=== PATIENT | female | born 1965 | race Caucasian/White ===

== ENCOUNTER 2018-08-14 06:07 | Day surgery (SDC) | payer SELFPAY ==
--- NOTE | 2018-08-12 21:12 | PREOPHP ---
Date of Admission: 08/13/2018 History Of Present Illness: Ms. Bowers is a 53-year-old female, 2, para 2-0-0-2, who has been menopausal for the last year plus but despite that has had some bleeding issues . She was initially treated with a variety of medications including oral contraceptive. She has con tinued to bleed. She is scheduled for hysteroscopy, D and C for evaluation and/or treatment of postm enopausal bleeding. Past Medical History: Includes 2 prior vaginal deliveries without complications. Medications: She is on currently thyroid replacement and an oral contraceptive for bleeding control. Allergies: SHE HAS NO KNOWN ALLERGIES. Social History: She does not smoke. Family History: Significant for father at young age of prostate cancer. Mother with thyroid di sorder. Review of Systems: She reports no recent cough, cold, fever, or chills. No recent nausea or vomiting. She denies any b reast lumps or knots. She denies any bowel or bladder issues. She has a negative ultrasound last ye ar for a leiomyomata or tubal abnormalities. She had endometrial biopsy from the end of last year sh owing no evidence of hyperplasia or precancer. She has an elevated FSH consistent with menopause las t year also. Impression: Postmenopausal bleeding, unresponsive to hormonal management. Plan: The patient will undergo hysteroscopy, dilatation and curettage for evaluation and treatment. LASHONDA Voice ID: [id number]
[2018-08-13 14:39] LABS: Absolute Lymphocytes (CBC) 2.2 K/uL (0.7-4.9); Absolute Monocytes 0.7 K/uL (0.1-1.3); Absolute Neutrophil 6.2 K/uL (1.8-8.0); Basophils % 0.6 % (0-1.3); Hematocrit 39.9 % (36.0-45.0); Lymphocytes % 23.6 % (15.3-44.8); Monocytes % 7.3 % (3.3-12.3)
[~2018-08-14 06:07] MED LIST: Ringers Lactate 1,000 ML IV SCH
[2018-08-14] MEDS ORDERED: Ringers Lactate 1,000 ML IV ONE (06:45)
[2018-08-14] MEDS ORDERED: SILVER NITRATE 1 APPL TOP ONE (07:09)
[2018-08-14] MEDS ORDERED: NA CHLORIDE 0.9% 1,000 ML ONE (07:09)
[2018-08-14] MEDS ORDERED: FENTANYL CITR 100 MCG/2 ML ONE (07:11)
[2018-08-14] MEDS ORDERED: PROPOFOL 200 MG/20 ML VIAL IV ONE (07:11)
[2018-08-14] MEDS ORDERED: MIDAZOLAM HCL 2 MG/2 ML INJ ONE (07:12)
[2018-08-14] MEDS ORDERED: LIDOCAINE 1% MPF 2 ML AMPULE ONE (07:13)
--- NOTE | 2018-08-14 18:57 | OP ---
Surgeon: Virgilio Pepper MD Preoperative Diagnosis: Postmenopausal vaginal bleeding. Procedures: Hysteroscopy. Dilatation and curettage, uterine endometrium. Postoperative Diagnoses: Postmenopausal vaginal bleeding with submucosal leiomyomata. Description Of Procedure: After satisfactory level of general anesthesia was obtained, the patient w as prepped and draped in the usual fashion in low leg holders. A bivalve speculum was placed in the vagina. Cervix visualized and grasped with single-tooth tenaculum. Uterus sounded to approximately 9 cm. Hysteroscope introduced and visualization of the endometrium revealed probable submucosal leio myomata on the anterior surface right lateral area and on the posterior right lateral at the junction of the endocervical canal with the endometrium, otherwise no other significant abnormalities were no allyssa. The hysteroscope was removed, curettage of the endometrium, and polyp forceps were used to take biopsy of the probable leiomyomata in the endometrium. The patient was awakened, taken to recovery room in satisfactory condition. Estimated Total Blood Loss: Less than 5 mL. Anesthesia: Henny Sung and Dr. Ryan Campos. MARCUS/MODL Voice ID: [id number] Report ID: [id number]
--- NOTE | 2018-08-14 19:03 | DS ---
Date of Discharge: 08/14/2018 Final Hospital Discharge Diagnoses: 1.Postmenopausal bleeding. 2.Submucosal leiomyomata. Complications: None. Procedures: Hysteroscopy, dilation and curettage. Hospital Course: The patient is a 53-year-old female, who I evaluated for postmenopausal b leeding, who has been refractory to outpatient medical management. She underwent hysteroscopy, D and C, which revealed probable 2 small submucosal myomata. She was dismissed to be seen back in my offi in 2 weeks. Lab work included admission hemoglobin and hematocrit of 13.5 and 39.9, and a negativ e quantitative HCG. She was dismissed with the usual post D and C activity restrictions. MARCUS/AGATA Voice ID: [id number] Report ID: [id number]
== END 2018-08-14 09:10 | disposition home or self-care (01) ==
LOC: OR 06:07
PROVIDERS: ATTEND Specialist
PROC: 0UJD8ZZ Inspection of Uterus and Cervix, Via Natural or Artificial Opening Endoscopic (ICD-10-PCS; 2018-08-14)
PROC: 0UDB7ZZ Extraction of Endometrium, Via Natural or Artificial Opening (ICD-10-PCS; principal; 2018-08-14 07:30)
DX: N95.0 Postmenopausal bleeding (principal); D25.0 Submucous leiomyoma of uterus; E07.9 Disorder of thyroid, unspecified
CPT/HCPCS: 36415; 84703; 85025; 88305; J2001; J2250; J2704; J3010; J7030

== ENCOUNTER 2019-10-22 06:28 | Day surgery (SDC) | payer SELFPAY ==
[2019-10-19 12:01] LABS: Absolute Lymphocytes (CBC) 1.8 K/uL (0.7-4.9); Basophils % 0.6 % (0-1.3); Hematocrit 46.7 % (36.0-45.0); Lymphocytes % 20.9 % (15.3-44.8); MPV 9.9 fL (7.6-11.3); RBC Red Blood Cell Count 5.01 M/uL (3.86-4.86)
[2019-10-19 12:02] LABS: Urine Appearance CLEAR; Urine Bilirubin NEGATIVE (NEG); Urine Blood 2+ (NEG); Urine Color YELLOW; Urine Glucose NEGATIVE (NEG); Urine Protein NEGATIVE (NEG); Urine Specific Gravity <=1.005 (1.005-1.030); Urine Urobilinogen 0.2 mg/dL (0.2-1.0); Urine pH 5.5 (5.0-7.0)
[2019-10-19 12:04] LABS: Urine Microscopic Reflex ORDER UMIC
[2019-10-19 12:17] LABS: Urine Bacteria <20 /HPF (<20); Urine Culture Reflex Order NOT NEEDED; Urine RBC <5 /HPF (NONE SEEN)
[2019-10-22] MEDS ORDERED: Ringers Lactate 1,000 ML IV ONE ×2 (06:52→07:12)
[2019-10-22] MEDS ORDERED: SCOPOLAMINE HYDROBROMIDE PATCH TD ONE (06:52)
[2019-10-22] MEDS ORDERED: BUPIVACAINE 0.5% Inj,MDV 50 mL VIAL ONE (07:12)
[2019-10-22] MEDS ORDERED: ROCURONIUM 50 MG/5 ML VIAL IV ONE (07:15)
[2019-10-22] MEDS ORDERED: propofoL 200 MG/20 ML VIAL IV ONE (07:15)
[2019-10-22] MEDS ORDERED: MIDAZOLAM HCL 2 MG/2 ML INJ ONE (07:16)
[2019-10-22] MEDS ORDERED: dexAMETHasone 10 MG/ML VIAL ONE (07:16)
[2019-10-22] MEDS ORDERED: LIDOCAINE 2% MPF 5 ML VIAL ONE (07:16)
[2019-10-22] MEDS ORDERED: FENTANYL CITR 250 MCG/5 ML ONE (07:16)
[2019-10-22] MEDS ORDERED: ONDANSETRON 4 MG/2 ML VIAL ONE ×2 (07:16→11:29)
[2019-10-22] MEDS ORDERED: CEFAZOLIN/SWI 2gm 2 GM/20 ML SYR ONE (07:18)
[2019-10-22] MEDS ORDERED: GLYCOPYRROLATE 0.2 MG/ML SYR ONE (08:31)
[2019-10-22] MEDS ORDERED: KETOROLAC 30 MG/ML INJ ONE (10:04)
[2019-10-22] MEDS: HYDROMORPHONE HCL 1 MG/ML INJ ONE ×2 (11:22→11:27)
[2019-10-22] MEDS ORDERED: IBUPROFEN 200 MG TAB PO ONE (12:07)
[2019-10-22] MEDS ORDERED: IBUPROFEN 400 MG TAB ONE (12:07)
[2019-10-22] MEDS ORDERED: HYDROCODONE/APAP 5/325 MG TAB ONE (13:06)
[2019-10-22 14:24] VITALS: TEMP 98
[2019-10-22 14:35] VITALS: BP 105/61; O2SAT 99
--- NOTE | 2019-10-22 20:43 | OP ---
Date of Procedure: 10/22/2019 Surgeon: Glenny Dunham MD Folder Seamer: Irina Shearer. Preoperative Diagnosis: AUB-L. Postoperative Diagnosis: AUB-L. Procedure Performed: Total laparoscopic hysterectomy, bilateral salpingo-oophorectomy, cystoscopy. Estimated Blood Loss: Minimal. Urine Output: 250. Anesthesia: General endotracheal. Specimens: Uterus, bilateral tubes and ovaries. Complications: No complications. Drains: No drains. Condition: Stable. Indication: Patient is a 54-year-old, referred to me from Dr. Pepper for heavy bleeding. She was evaluated with ultrasound, had a hysteroscopy and D and C performed by him last year, treated conser vatively and had no relief. After counseling her on all the options of observation myomectomy, the p atient having waited during the time of the COVID, still wished to continue with her procedure due to her bleeding that was unabated. Description Of Procedure: After informed consent was verified, she was brought to the OR, placed in a supine fashion on the operating table. 2 g of Ancef was given. SCDs were started. Time-out was d one. Abdomen, vulva, vagina, and perineum prepped and draped in a sterile fashion. Batista placed to drain the bladder. A large VCare fixed into place for uterine manipulation and this area was draped after the Batista was connected for retrograde filling. 1 cm infraumbilical semilunar incision was made with a scalpel using the open laparoscopy technique. Fascia was identified and incised, tagged with 0 Vicryl sutures bluntly, peritoneum entered, S retra ctors were placed. Insufflation done adequately. Site of entry was checked, unremarkable. Patient placed in Trendelenburg. A 5 mm left lower quadrant, 10 mm suprapubic ports were placed under direct vision without any problems. Then, pelvic survey was done, subserosal as well as enlarged uterus wa s seen. There was a large cystic structure about 3 cm on the left tubo-ovarian ligament, on the ovar y as well, and there were some broad ligament cysts as well. Hydrosalpinx on the left, on the right side simple ovarian cyst seen. The bowel was retracted superiorly with the help of 3-0 Monocryl and using a Robin-Kennedy needle, the retraction was done through the left upper quadrant. There was a small hematoma at the level of the left lower quadrant incision, but epigastric vessels were at least 1.5 cm away medial from the po rt placement. This could be an abnormal vessel with no ongoing increase in the hematoma nor or at th e end of the case, so no extra hemostasis had to be secured. The 0.5% Marcaine was injected at the skin as well as the level of the fascia at the start of the keren yuliana and at the end. The LigaSure was taken to take down the utero-ovarian ligament, mesosalpinx tube, round ligament. Br oad ligament opened up anteriorly and posteriorly and posteriorly taken down to the left uterosacral, anteriorly taken to open the bladder flap to the midline and vessels were skeletonized by taking oneal n the broad ligament. On the right side, the utero-ovarian ligament, mesosalpinx tubes were taken do wn. Tube was removed entirely and handed off for permanent pathology. The round ligament taken down , anterior broad ligament connected, and posterior opened up as well to the right uterosacral. Vesse ls were skeletonized, exposed, and cauterized with the bipolar basket tip and then with the LigaSure. The uterine vein was bleeding and this was cauterized again. Anterovaginal wall was cleared up aft er opening the vesicovaginal space and the bladder was retracted inferiorly at least 2 cm from the VC are cup. On the left side vessels taken down, cardinal ligaments were taken down with the help of the LigaSure and the basket tip. Circumferential colpotomy with a monopolar hook blade was performed. Started o n the anterior aspect, attempted to come down anteriorly, but it was difficult to discern the cup due to the thickness of the vaginal wall, so went down to the left, open anteriorly, and took down the l eft side all the way past the left uterosacral insertion. Uterosacral was left attached to the apex of the vagina. Then came back on the right side and finished the colpotomy. Specimen was pulled out through the vagina. The tube and ovary were dissected on the left side completely away from the bro ad ligament and then after being skeletonized on the IP ligament this was taken down. On the right s antoinette, similar dissection was performed to isolate the IP and then the right ovary was taken down. All these were pulled out through the vagina. There was excellent hemostasis at the vaginal cuff. Ther e were 2 areas that needed the bipolar, that had slight bleeding, that were cauterized with the bipol ar, and that was adequate. 2-0 V-Loc was used to continuously close the vaginal cuff in 2 layers. T he initial layer with vaginal epithelium and the sub-epithelium and connective tissue all the way fro m right to the left and from left to the right the second layer of the connective tissue posteriorly- anteriorly to connect to the precervical tissue and the rectovaginal septum. All these at the end of the case appeared to be well supported and the uterosacrals were holding the apex very well as well. No evidence of electrical, mechanical, or thermal injury to the ureters; however, the peristalsis o n the right was not very well visualized and so cystoscopy was performed. 17-[place] was used for the cystourethroscopy using normal saline and at 30 degree lens there were excellent jets of urine from both ureteric orifices. No evidence of any trauma to the bladder. Bladder was drained. Vagina was cleaned up. This area was draped. The vaginal occluder was removed. After the gloves were changed, went back on the top and removed the ports under direct vision, then pulled out the ports, then clos ed the ports at the umbilicus with a tag sutures and tied at both ends and the suprapubic fascial inc ision closed with the help of a simple 0 Vicryl stitch and skin incisions closed with interrupted 4-0 Vicryl and the suspension stitch for the retraction of the bowel was also removed and there was hemo stasis at the epiploicae and the upper side was unremarkable. All these were injected with Marcaine again and case completed. Instrument, needle, and sponge counts were correct at the end of the case. The patient tolerated the procedure well. She will follow up with me in 1 week. I discussed with the patient's daughter about her findings and explained to her satisfaction. She has a 1 week appointment to see u s. CODIE/AGATA Voice ID: [id number] Report ID: [id number]
== END 2019-10-22 13:20 | disposition home health service (06) ==
LOC: OR 06:28
PROVIDERS: ATTEND Obstetrics & Gynecology
PROC: 0UT2FZZ Resection of Bilateral Ovaries, Via Natural or Artificial Opening With Percutaneous Endoscopic Assistance (ICD-10-PCS; 2019-10-22)
PROC: 0UT7FZZ Resection of Bilateral Fallopian Tubes, Via Natural or Artificial Opening With Percutaneous Endoscopic Assistance (ICD-10-PCS; 2019-10-22)
PROC: 0UT9FZZ Resection of Uterus, Via Natural or Artificial Opening With Percutaneous Endoscopic Assistance (ICD-10-PCS; principal; 2019-10-22 07:30)
DX: D25.9 Leiomyoma of uterus, unspecified (principal); E03.9 Hypothyroidism, unspecified; Z79.899 Other long term (current) drug therapy; N85.01 Benign endometrial hyperplasia; N83.12 Corpus luteum cyst of left ovary; N94.89 Other specified conditions associated with female genital organs and menstrual cycle
CPT/HCPCS: 36415; 81003; 81015; 81025; 85025; 86850; 86900; 86901; 88307; J0690; J1100; J1170; J2250; J2405; J2704; J3010; J7120

== ENCOUNTER → 2021-01-27 | Day surgery (SDC) | payer SELFPAY ==
[~2021-01-27] MED LIST changes: +CODEINE 30MG/APAP 300MG TAB ONE; -Ringers Lactate 1,000 ML IV SCH
--- NOTE | 2021-01-27 11:12 | RAD REPORT ---
EXAM DESCRIPTION: US - Breast Core BX w/US Guidance - 01/27/2021 10:21 am CLINICAL HISTORY: ICD N63.22 COMPARISON: ultrasound December 2020 TECHNIQUE: The risks, benefits alternatives to the procedure were explained to the patient and infor med consent obtained. Skin, subcutaneous and breast tissues anesthetized with lidocaine. Under sonographic guidance, two 14 gauge vacuum assisted core biopsies of the 1 centimeter well-circu mscribed mass within the inner upper left breast obtained. 2 centimeter specimens taken. Tissue given to pathology. Subsequently a localizing clip was placed into the mass. Patient experienced no immediate complication IMPRESSION: Vacuum assisted core biopsies of a 1 centimeter well-circumscribed left breast mass Sonographic evaluation of the previously described vague 1 centimeter hypo to isoechoic lobulated str ucture within the inner left breast was performed. On today's ultrasound it had more of the appearanc e of fibroglandular tissue than a mass. Consequently a biopsy was not performed. It is recommended th at the patient have a followup ultrasound left breast in 6 months for re-evaluation
== END ==
LOC: DS 10:00
PROVIDERS: ATTEND Surgery
PROC: 0H9U3ZX Drainage of Left Breast, Percutaneous Approach, Diagnostic (ICD-10-PCS; principal; 2021-01-27)
DX: N63.22 Unspecified lump in the left breast, upper inner quadrant (principal)
CPT/HCPCS: 19083; 88305